=== PATIENT | female | born 1975 | race Caucasian/White ===

== ENCOUNTER 2016-11-04 12:32 | Emergency (ER) | payer OTHER ==
[~2016-11-04] VITALS: Ht 165.1 cm; Wt 68.0 kg
--- NOTE | 2016-11-04 12:32 | NUR ---
TINGLING AND NUMBNESS TO B L E AND BILATERAL HANDS AT LUNCH 20 MIN PACKAGE [employer]KER. NAD NOTED. AMBULATORY WITH STEADY GAIT. RR EVEN AND UNLABORED. PT APPEARS ANXIOUS, AAO X4. PENDING MD SIMENTAL.
[2016-11-04] MEDS ORDERED: LORAZEPAM 1 MG TABLET PO ONE (13:00)
[2016-11-04] MEDS ORDERED: KETOROLAC TROMETHAMINE INJ 60 MG/2 ML VIAL IM ONE ×2 (13:00→13:04)
[2016-11-04] MEDS ORDERED: LORAZEPAM 1 MG TABLET ONE (13:04)
--- NOTE | 2016-11-04 13:17 | NUR ---
MEDICATIONS GIVEN ORDERED.
[2016-11-04 14:15] LABS: BASOPHILS % (AUTO) 0.5 % (0.0-2.0); EOSINOPHILS % (AUTO) 0.5 % (0.0-6.0); HEMATOCRIT 43 % (33-45); HEMOGLOBIN 14.5 g/dL (11.5-14.8); LYMPHOCYTES # (AUTO) 2.4 /CMM (0.8-4.8); LYMPHOCYTES % (AUTO) 24.6 % (20.0-44.0); MEAN CORPUSCULAR HEMOGLOBIN 31 PG (26.0-33.0); MEAN CORPUSCULAR HGB CONC 34 g/dl (31.0-36.0); MEAN CORPUSCULAR VOLUME 91 fL (82-100); MONOCYTES # (AUTO) 0.4 /CMM (0.1-1.30); MONOCYTES % (AUTO) 3.8 % (2.0-12.0); NEUTROPHILS # (AUTO) 6.9 /CMM (1.8-8.9); NEUTROPHILS % (AUTO) 70.6 % (43.0-81.0); PLATELET COUNT (AUTO) 360 /CMM (150-450); RDW COEFFICIENT OF VARIATION 11.6 (11.5-15.0); RED BLOOD CELL COUNT(AUTO) 4.72 MIL/uL (4.0-5.2); WHITE BLOOD COUNT (AUTO) 9.7 K/uL (4.3-11.0)
[2016-11-04 14:25] LABS: CALCIUM, SERUM 9.3 mg/dL (8.5-10.1); CARBON DIOXIDE 27 mmol/L (21-32); CHLORIDE 102 mmol/L (98-107); CREATININE 0.8 mg/dL (0.6-1.3); GFR 79 mL/min (>60); GLUCOSE 99 mg/dL (74-106); POTASSIUM 4.1 mmol/L (3.5-5.1); SODIUM SERUM 137 mmol/L (136-145); UREA NITROGEN, BLOOD 9 mg/dL (7-18)
[2016-11-04 14:31] LABS: TROPONIN I < 0.017 ng/mL (0.00-0.056)
[2016-11-04 14:34] LABS: INR 0.9 (0.87-1.13); PROTHROMBIN TIME 9.6 SECS (9.5-12.7)
[2016-11-04 15:03] VITALS: BP 118/71
== END 2016-11-04 15:04 | disposition home or self-care (01) ==
LOC: ER 12:34
DX: R20.2 Paresthesia of skin (principal); F41.9 Anxiety disorder, unspecified; F32.9 Major depressive disorder, single episode, unspecified
CPT/HCPCS: 36415; 80048; 82962; 84484; 85025; 85730; 93005; 96372; 99285; A4606; J1885; Z7610